=== PATIENT | male | born 1945 ===

== ENCOUNTER → 2017-04-09 | Outpatient (CLI) | END | disposition home or self-care (01) ==

== ENCOUNTER 2017-05-14 13:14 | Day surgery (SDC) | payer MEDICARE, OTHER ==
[~2017-05-14] VITALS: Ht 182.9 cm; Wt 96.8 kg
[~2017-05-14 13:14] MED LIST: AMLO5 PO; Aspirin EC81 MG PO; FURO20 PO; K-Dur20 MEQ PO; LISI20 PO; OMEG1CAP30 PO
[2017-05-14] MEDS ORDERED: LEVSOD50 (13:54)
== END 2017-05-14 16:15 | disposition home or self-care (01) ==
LOC: ORSCSDS 13:14
PROVIDERS: Surgery
PROC: 0DJD8ZZ Inspection of Lower Intestinal Tract, Via Natural or Artificial Opening Endoscopic (ICD-10-PCS; principal; 2017-05-14 14:30)
DX: R93.5 Abnormal findings on diagnostic imaging of other abdominal regions, including retroperitoneum (principal); Z80.0 Family history of malignant neoplasm of digestive organs; Z79.82 Long term (current) use of aspirin; Z79.899 Other long term (current) drug therapy; Z87.891 Personal history of nicotine dependence; E66.9 Obesity, unspecified; Z68.30 Body mass index [BMI] 30.0-30.9, adult
CPT/HCPCS: 82947